=== PATIENT | female | born 1960 | race Caucasian/White ===

== ENCOUNTER 2016-10-26 18:50 | Emergency (ER) | payer OTHER ==
[~2016-10-26] VITALS: Ht 162.6 cm; Wt 89.0 kg
[2016-10-26 18:54] VITALS: Ht 162.6 cm; Wt 89.0 kg
[2016-10-26] MEDS ORDERED: morphine 10 MG INJ IM ONE (19:00)
[2016-10-26] MEDS ORDERED: DIAZEPAM 5 MG/ML SYG IM ONE (19:00)
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
[2016-10-26] MEDS ORDERED: IBUP800T25 PO (20:24)
[2016-10-26] MEDS ORDERED: HYDR-906 PO (20:24)
[2016-10-26 20:59] VITALS: BP 145/46; PULSE 71; RESP 15
== END 2016-10-26 20:59 | disposition home or self-care (01) ==
LOC: E/R 18:50
DX: S16.1XXA Strain of muscle, fascia and tendon at neck level, initial encounter (principal); S20.219A Contusion of unspecified front wall of thorax, initial encounter; I10 Essential (primary) hypertension; V49.49XA Driver injured in collision with other motor vehicles in traffic accident, initial encounter
CPT/HCPCS: 71010; 72125; 96372; J2270; J3360; Z7502

== ENCOUNTER 2017-05-08 23:26 | Emergency (ER) | payer OTHER ==
[~2017-05-08] VITALS: Ht 162.6 cm; Wt 100.5 kg
[~2017-05-08 23:26] MED LIST: HYDR-906 PO; IBUP800T25 PO
[2017-05-08 23:28] VITALS: Ht 162.6 cm; Wt 100.5 kg
[2017-05-08] MEDS ORDERED: predniSONE 20 MG TAB PO STA (23:42)
[2017-05-08] MEDS ORDERED: IPRATROPIUM (NEB) 0.5 MG/2.5 ML AMP NEB STA (23:42)
[2017-05-08] MEDS ORDERED: ALBUTEROL 0.083% (NEB) 2.5 MG/3 ML AMP NEB STA (23:42)
[2017-05-09] MEDS ORDERED: ALBUTEROL 0.5% (NEB) 2.5 MG/0.5 ML AMP INH STA ×2 (00:12→00:18)
[2017-05-09] MEDS ORDERED: IPRATROPIUM (NEB) 0.5 MG/2.5 ML AMP INH STA (00:18)
--- NOTE | 2017-05-09 01:18 | RADRPT ---
PROCEDURE: CHEST - 1 VIEW CLINICAL INDICATION: 57-year-old female with shortness of breath. TECHNIQUE: A single frontal AP portable view of the chest was performed. The images were reviewed on a PACS workstation. COMPARISON: None. FINDINGS: The cardiomediastinal silhouette has a normal appearance. There is a shallow inspiration. There is n o evidence for an infiltrate. There is no evidence for congestive heart failure. There is no eviden ce for pneumothorax. The osseous structures are intact. IMPRESSION: No evidence for active cardiopulmonary disease. .Wilman Lozano MD, MD Date Time Electronically viewed and signed by .Wilman Lozano MD, on 05/09/2017 01:18 .M/
[2017-05-09] MEDS ORDERED: AZIT250T94 PO (01:26)
[2017-05-09] MEDS ORDERED: PROM5SYR2 PO (01:26)
--- NOTE | 2017-05-09 01:32 | ERD ---
ER Documentation Chief Complaint Date/Time DATE: 05/09/17 TIME: 01:29 Chief Complaint cough w/ sob x 1 day, back pain HPI This patient is a 57-year-old female who has a history of hypertension in which she takes benazepril for she is complaining of cough or shortness of breath for 1 day. She states that 2 weeks ago she was sick with a cold and she got better but today she got much worse and has been coughing and wheezing. Denies any fever. She states she saw her primary care doctor yesterday who told her she had pneumonia although she has not had an x-ray yet. She has not started any antibiotics. No palpitations or diaphoresis. She has not taken any medications. ROS All systems reviewed and are negative except as per history of present illness. Medications Home Meds Active Scripts Azithromycin* (Zithromax*) 250 Mg Tablet, 250 MG PO .ZPACK DIRECTED, #6 TAB TAKE 500 MG (2 TABS) THE FIRST DAY THEN 250 MG (1 TAB) DAYS 2-5 Prov:RAMIRO PEREZ PA-C 05/09/17 Promethazine HCl/Codeine (Prometh-Codein 6.25-10 mg/5 ml) 5 Ml Syrup, 5 ML PO Q6 , #6 OZ Prov:RAMIRO PEREZ PA-C 05/09/17 Allergies Allergies: Coded Allergies: No Known Allergy (Unverified , 05/08/17) PMhx/Soc Medical and Surgical Hx: pt denies Medical Hx, pt denies Surgical Hx Hx Alcohol Use: No Hx Substance Use: No Hx Tobacco Use: No Smoking Status: Never smoker FmHx Family History: No diabetes Physical Exam Vitals Vital Signs Date Time Temp Pulse Resp B/P Pulse Ox O2 Delivery O2 Flow Rate FiO2 05/09/17 00:20 98 24 95 21 05/08/17 23:50 106 28 97 21 05/08/17 23:28 98.5 93 20 142/79 98 Physical Exam INITIAL VITAL SIGNS: Reviewed by me GENERAL: Awake, alert and oriented x 4, well appearing, nontoxic, speaking in full sentences. Mild to moderate distress secondary to coughing HEAD: Atraumatic THROAT: No tonilar erythema or edema. No exudates. Uvula midline. No kissing tonsils. NECK: Supple. No masses. Full range of motion. No meningismus. No midline tenderness. RESPIRATORY: Bilateral respiratory wheezing, coughing CV: Regular rate and rhythm. No murmurs, rubs, or gallops. ABDOMEN: Soft, non-distended. Nontender. Negative [place]. Negative McBurneys point tenderness. No CVA tenderness bilaterally. No guarding. No rebound. : Deffered. Results 24 hrs Current Medications Medications (Trade) Dose Ordered Sig/Edson Route PRN Reason Start Time Stop Time Status Last Admin Dose Admin Albuterol (Proventil 0.083% (Neb)) 2.5 mg ONCE STAT NEB 05/08/17 23:42 05/08/17 23:43 DC 05/08/17 23:50 Ipratropium [place] (Atrovent 0.02% (Neb)) 0.5 mg ONCE STAT NEB 05/08/17 23:42 05/08/17 23:43 DC 05/08/17 23:50 Prednisone (Prednisone) 60 mg ONCE STAT PO 05/08/17 23:42 05/08/17 23:43 DC 05/09/17 00:34 Albuterol (Proventil 0.5% (Neb)) 5 mg ONCE STAT INH 05/09/17 00:12 05/09/17 00:13 Cancel Albuterol (Proventil 0.5% (Neb)) 10 mg ONCE STAT INH 05/09/17 00:18 05/09/17 00:19 DC 05/09/17 00:23 Ipratropium [place] (Atrovent 0.02% (Neb)) 1 mg ONCE STAT INH 05/09/17 00:18 05/09/17 00:19 DC 05/09/17 00:22 Procedures/MDM 57-year-old female presents with coughing that began today with wheezing. Blood pressure mildly elevated 142/79 otherwise vital signs are within normal limits. She is afebrile. She is not tachycardic. O2 saturation is 98% on room air. She was given a breathing treatment and prednisone with improvement of her symptoms. EKG showed no evidence of ST elevation or acute ischemic changes. Chest x-ray showed no evidence of pneumonia. She was given a prescription for cough syrup and azithromycin. Chart was reviewed with Dr. Victoria. Patient counseled regarding my diagnostic impression and care plan. Prior to discharge all questions answered. Pt agrees with treatment plan and understands strict return precautions. Pt is instructed to follow up with primary care provider within 24-48 hours. Precautionary instructions provided including instructions to return to the ER if not improving or for any worsening or changing symptoms or concerns. Departure Diagnosis: Primary Impression: Wheezy bronchitis Condition: Stable Patient Instructions: Bronchitis With Wheezing (Adult) Additional Instructions: Llame al doctor MAANA y susannah arabella CHRISTIANO PARA DENTRO DE 1-2 BAILEY.Dgale a la secretaria que nosotros le instruimos hacer esta christiano.Avise o llame si skinner condicin se empeora antes de la christiano. Regresa aqui si peor o no mejor. RAMIRO PEREZ PA-C May 09, 2017 01:32
[2017-05-09 01:47] VITALS: BP 114/55; PULSE 101; RESP 16; TEMP 97.8
== END 2017-05-09 01:45 | disposition home or self-care (01) ==
LOC: FTE 23:26 → MERGE 23:26 → FTE 05-09 01:45
DX: J20.9 Acute bronchitis, unspecified (principal); I10 Essential (primary) hypertension
CPT/HCPCS: 71010; 93005; 94644; 94664; J7512; Z7502; Z7610